=== PATIENT | male | born 1980 | race African-American/Black ===

== ENCOUNTER 2021-04-21 03:25 | Emergency (ER) | payer SELFPAY ==
[~2021-04-21] VITALS: Ht 188 cm; Wt 166.7 kg
[2021-04-21 03:30] VITALS: BP 154/91
[2021-04-21] MEDS ORDERED: BACITRACIN ZINC OINT 500U/GM, 0.9 GM ONE ×2 (04:03→04:11)
== END 2021-04-21 04:17 | disposition home or self-care (01) ==
LOC: ED 03:50
DX: L91.8 Other hypertrophic disorders of the skin (principal); L98.9 Disorder of the skin and subcutaneous tissue, unspecified; F17.210 Nicotine dependence, cigarettes, uncomplicated
CPT/HCPCS: 99281; 99406